=== PATIENT | male | born 2000 | race Two or more races ===

== ENCOUNTER 2022-12-22 10:25 | Outpatient (CLI) | payer OTHER | END 2022-12-22 10:30 | disposition home or self-care (01) | LOC: SONOGRAMA 10:25 | PROVIDERS: ATTEND Pathology Anatomic Pathology & Clinical Pathology | DX: D34 Benign neoplasm of thyroid gland (principal); E04.9 Nontoxic goiter, unspecified ==

== ENCOUNTER 2024-05-09 08:21 | Outpatient (CLI) | payer OTHER | END 2024-05-09 08:27 | disposition home or self-care (01) | LOC: SONOGRAMA 08:21 | PROVIDERS: ATTEND Pathology Anatomic Pathology | DX: D34 Benign neoplasm of thyroid gland (principal); E07.89 Other specified disorders of thyroid; E04.2 Nontoxic multinodular goiter ==

== ENCOUNTER 2025-01-09 13:19 | Outpatient (CLI) | payer OTHER | END 2025-01-09 13:22 | disposition home or self-care (01) | LOC: SONOGRAMA 13:19 | PROVIDERS: ATTEND Pathology Anatomic Pathology | DX: D44.0 Neoplasm of uncertain behavior of thyroid gland (principal); D34 Benign neoplasm of thyroid gland; E07.89 Other specified disorders of thyroid; E04.1 Nontoxic single thyroid nodule ==

== ENCOUNTER 2025-02-17 15:20 | Outpatient (CLI) | payer OTHER | END 2025-02-17 15:22 | disposition home or self-care (01) | LOC: SONOGRAMA 15:20 | PROVIDERS: ATTEND Pathology Anatomic Pathology | DX: D34 Benign neoplasm of thyroid gland (principal); E07.89 Other specified disorders of thyroid; E04.2 Nontoxic multinodular goiter ==